=== PATIENT | female | born 1950 | race Caucasian/White ===

== ENCOUNTER 2016-05-26 10:37 | Emergency (ER) | payer MEDICARE, OTHER ==
[~2016-05-26] VITALS: Ht 162.6 cm; Wt 96.9 kg
[~2016-05-26 10:37] MED LIST: DIPH1TAB25 PO; IBUP-1542 PO; IBUP400T22 PO; NITR-58 PO; PHEN-537 PO; PRED20TA PO
[2016-05-26 10:44] VITALS: Ht 162.6 cm; Wt 96.9 kg
[2016-05-26] MEDS ORDERED: METGEL45 TOP (12:07)
[2016-05-26] MEDS ORDERED: HYDR-3011 PO (12:08)
--- NOTE | 2016-05-26 13:51 | ERD ---
ER Documentation Chief Complaint Date/Time DATE: 05/26/16 TIME: 13:46 Chief Complaint feels swelling on forehead, does appear red HPI This patient is a 65-year-old female with past medical history of hypertension presenting to the emergency department for moderate pruritus on her forehead and bilateral cheeks which has been ongoing since this morning. The patient denies any new medications. The patient denies shortness of breath, chest pain , dizziness. She states she takes losartan, hydrochlorothiazide, and aspirin which she has been taking for many years for hypertension. The patient denies any new lotions, detergents, body washes, or other changes to her routine at home. There are no other symptoms to report at this time. ROS All systems reviewed and are negative except as per history of present illness. Medications Home Meds Active Scripts Hydroxyzine Hcl* (Hydroxyzine Hcl*) 25 Mg Tablet, 25 MG PO Q8H Y for ITCHING, # 30 TAB Prov:THAIS TALBOT PA-C 05/26/16 Metronidazole* (Metrogel*) 0.75% -45 Gram Gel, 1 APPLIC TOP BID, #1 TUB Prov:THAIS TALBOT PA-C 05/26/16 Ibuprofen* (Motrin*) 400 Mg Tab, 400 MG PO Q6, #30 TAB 0 Refills Prov:BETI PARMAR PA-C 08/05/15 Phenazopyridine Hcl* (Pyridium*) 100 Mg Tab, 100 MG PO TID Y for PAIN, #9 TAB 0 Refills Prov:BETI PARMAR PA-C 08/05/15 Nitrofurantoin Monohyd Macrocr* (Macrobid*) 100 Mg Capsr, 100 MG PO BID, #14 CAP 0 Refills Prov:BETI PARMAR PA-C 08/05/15 Ibuprofen* (Motrin*) 600 Mg Tab, 600 MG PO Q6, #20 TAB Prov:CLARA HERNANDEZ PA-C 10/15/14 Reported Medications Diphenoxylate Hcl-Atropine* (Lomotil*) 1 Tab Tab, 1 TAB PO BID Y for DIARRHEA, TAB 07/25/14 Prednisone* (Prednisone*) 20 Mg Tab, 20 MG PO DAILY, TAB 07/25/14 Allergies Allergies: Coded Allergies: ciprofloxacin (Verified Allergy, Mild, ITCHING;TONGUE FEELS SWOLLEN, ) AND RAFI SHI MADE AWARE PMhx/Soc Anesthesia Reaction: No Hx Neurological Disorder: No Hx Respiratory Disorders: No Hx Cardiac Disorders: Yes (htn) Hx Psychiatric Problems: Yes (depression) Hx Miscellaneous Medical Probl: No (collitis, hemmhroids) Hx Alcohol Use: No Hx Substance Use: No Hx Tobacco Use: No Smoking Status: Never smoker FmHx Noncontributory for chief complaint Physical Exam Vitals Vital Signs Date Time Temp Pulse Resp B/P Pulse Ox O2 Delivery O2 Flow Rate FiO2 05/26/16 10:44 96.9 79 18 167/74 99 Physical Exam Const: The patient is resting comfortably in no acute distress. Head: Atraumatic Eyes: Normal Conjunctiva ENT: Normal External Ears, Nose and Mouth. Neck: Full range of motion. No meningismus. Resp: Clear to auscultation bilaterally Cardio: Regular rate and rhythm, no murmurs Abd: Soft, non tender, non distended. Skin: There is an erythematous, non-blanchable, papular rash to bilateral cheeks with telangiectasias present. There is no warmth, fasciculations, or pustules. Back: No midline or flank tenderness Ext: No cyanosis, or edema Neur: Awake and alert Psych: Normal Mood and Affect Procedures/MDM 65-year-old female presents secondary to complaints of pruritus and redness on her forehead and bilateral cheeks. On physical examination the patient's blood pressure slightly elevated. Patient's blood pressure was elevated (>120/80) but appears stable without evidence of hypertension emergency or urgency. The patient was counseled about the risks of hypertension and urged to pursue outpatient monitoring and therapy within a week with their primary care physician. Examination of the face reveals an erythematous nonblanching rash with telangiectasias. I suspect rosacea due to the fact that the patient has had the rash for many years. I doubt erysipelas, cellulitis, septicemia, or other emergent conditions. The patient is not being treated with medications currently and I believe it is reasonable to treat her with MetroGel and hydroxyzine as an outpatient. The patient is hemodynamically stable for discharge at this time. All questions and concerns were addressed. The patient agrees with the discharge plan and diagnosis. The patient was advised to return to the department immediately with any new or worsening symptoms and she demonstrates good understanding of this information. Departure Diagnosis: Primary Impression: Erythema Condition: Fair Patient Instructions: What Is Rosacea?, Erythema Referrals: [facility] Usted se arriola hecho un examen mdico de control que le indica que no est en osvaldo condicin que requiera tratamiento urgente en el Departamento de Emergencia. Un estudio ms profundo y el tratamiento de norman condicin pueden esperar sin ningn riesgo hasta que usted sea atendida/o en el consultorio de norman mdico o osvaldo cl lukasz. Es responsabilidad suya arreglar osvaldo nkechi para el seguimiento del omari. MANEJO DE CONDICIONES NO URGENTES EN EL FUTURO 1) Si usted tiene un mdico de atencin primaria: Usted debera llamar a norman mdico de atencin primaria antes de venir al departamento de emergencia. Despus de las horas de consultorio, norman doctor o norman asociado/a est disponible por telfono. El mdico o enfermero de brendan en el servicio telefnico puede asesorarle por [facility] medio para atender el problema, o omari contrario se puede programar osvaldo nkechi. 2) Si usted no tiene un mdico de atencin primaria: Llame al mdico o clnica de referencia que aparece abajo marni las horas de consultorio para hacer osvaldo nkechi para que le vean. CLINICAS: [facility] [id number] [facility] [phone] [facility] [phone] [address] [facility]. [facility] [phone] [facility] [phone] [facility]. [phone] [place] Additional Instructions: No mas mejor en 2-3 holt, regresar. Mas peor, regrese al emergencia rapidamente. Ir a doctor primario en 2-3 holt. Usar instrucciones cuando clarence medicamento. THAIS TALBOT PA-C May 26, 2016 13:51
== END 2016-05-26 12:35 | disposition home or self-care (01) ==
LOC: FTE 10:37
DX: L53.9 Erythematous condition, unspecified (principal); I10 Essential (primary) hypertension
CPT/HCPCS: 99284

== ENCOUNTER 2016-08-25 07:49 | Emergency (ER) | payer MEDICARE, OTHER ==
[~2016-08-25] VITALS: Ht 157.5 cm; Wt 89.0 kg
[~2016-08-25 07:49] MED LIST changes: +HYDR-3011 PO; +METGEL45 TOP
[2016-08-25 07:52] VITALS: Ht 157.5 cm; Wt 89.0 kg
[2016-08-25] MEDS ORDERED: HYDROmorphONE 1 MG/ML SYG IV STA (08:45)
[2016-08-25] MEDS ORDERED: ONDANSETRON 4 MG INJ IV STA (08:45)
[2016-08-25] MEDS ORDERED: SOD CHLORIDE 0.9% 1,000 ML IV STA (08:45)
[2016-08-25 09:09] LABS: ADD SCAN DIFF NO
[2016-08-25 09:12] LABS: BASOPHILS % 0.6 % (0.0-2.0); EOSINOPHILS # 0.2 10^3/ul (0.0-0.5); EOSINOPHILS % 2.3 % (0.0-7.0); HEMATOCRIT 39.4 % (37.0-47.0); HEMOGLOBIN 12.8 g/dl (12.0-16.0); LYMPHOCYTES # 1.9 10^3/ul (0.8-2.9); LYMPHOCYTES % 29.2 % (15.0-51.0); MEAN CORPUSCULAR HEMOGLOBIN 28.8 pg (29.0-33.0); MEAN CORPUSCULAR HGB CONC 32.5 g/dl (32.0-37.0); MEAN CORPUSCULAR VOLUME 88.5 fl (82.0-101.0); MEAN PLATELET VOLUME 10.1 fl (7.4-10.4); MONOCYTE # 0.5 10^3/ul (0.3-0.9); MONOCYTES % 8.1 % (0.0-11.0); NEUTROPHIL # 3.9 10^3/ul (1.6-7.5); NEUTROPHILS % 59.5 % (39.0-77.0); PLATELET COUNT 285 10^3/UL (140-415); RED BLOOD COUNT 4.45 10^6/ul (4.20-5.40); RED CELL DISTRIBUTION WIDTH 13.2 % (11.5-14.5); WHITE BLOOD COUNT 6.5 10^3/ul (4.8-10.8)
[2016-08-25 09:30] LABS: ALBUMIN/GLOBULIN RATIO 1.25; BILIRUBIN,INDIRECT 0.3 mg/dl (0-1.1); BILIRUBIN,TOTAL 0.3 mg/dl (0.2-1.3); CALCIUM 8.6 mg/dl (8.4-10.2); CREATININE 0.72 mg/dl (0.44-1.00); POTASSIUM 3.9 mmol/L (3.5-5.1); TOTAL PROTEIN 7.2 g/dl (6.1-8.1)
--- NOTE | 2016-08-25 09:40 | ERA ---
ER Documentation Chief Complaint Date/Time DATE: 08/25/16 TIME: 09:38 Chief Complaint blood in stool x 1 week with abd pain HPI This is a 65-year-old female says she is a history of ulcerative colitis and has off-and-on left abdominal pain and rectal bleeding from time to time. She states that she has had 8 days of left lower quadrant pain with bright red bloody stools. She says she has bloody diarrhea. There is no nausea or vomiting. The patient says she felt warm this morning but there is no fever here. She describes pain in the left lower quadrant is nonradiating and crampy. ROS All systems reviewed and are negative except as per history of present illness. Medications Home Meds Active Scripts Prednisone* (Prednisone*) 20 Mg Tab, 60 MG PO DAILY for 5 Days, TAB Prov:MEERA DELGADILLO DO 08/25/16 Mesalamine* (Asacol HD) 800 Mg Tablet.dr, 1800 MG PO TID, #60 TAB Prov:MEERA DELGADILLO DO 08/25/16 Sulfamethoxazole/Trimethoprim* (Bactrim Ds* Tablet) 1 Each Tablet, 1 TAB PO DAILY, #20 TAB Prov:MEERA DELGADILLO DO 08/25/16 Metronidazole* (Flagyl*) 500 Mg Tablet, 500 MG PO TID for 10 Days, TAB Prov:MEERA DELGADILLO DO 08/25/16 Discontinued Reported Medications Diphenoxylate Hcl-Atropine* (Lomotil*) 1 Tab Tab, 1 TAB PO BID Y for DIARRHEA, TAB 07/25/14 Prednisone* (Prednisone*) 20 Mg Tab, 20 MG PO DAILY, TAB 07/25/14 Discontinued Scripts Hydroxyzine Hcl* (Hydroxyzine Hcl*) 25 Mg Tablet, 25 MG PO Q8H Y for ITCHING, # 30 TAB Prov:THAIS TALBOT PA-C 05/26/16 Metronidazole* (Metrogel*) 0.75% -45 Gram Gel, 1 APPLIC TOP BID, #1 TUB Prov:THAIS TALBOT PA-C 05/26/16 Ibuprofen* (Motrin*) 400 Mg Tab, 400 MG PO Q6, #30 TAB 0 Refills Prov:BETI PARMAR PA-C 08/05/15 Phenazopyridine Hcl* (Pyridium*) 100 Mg Tab, 100 MG PO TID Y for PAIN, #9 TAB 0 Refills Prov:BETI PARMAR PA-C 08/05/15 Nitrofurantoin Monohyd Macrocr* (Macrobid*) 100 Mg Capsr, 100 MG PO BID, #14 CAP 0 Refills Prov:BETI PARMAR PA-C 08/05/15 Ibuprofen* (Motrin*) 600 Mg Tab, 600 MG PO Q6, #20 TAB Prov:CLARA HERNANDEZ PA-C 10/15/14 Allergies Allergies: Coded Allergies: ciprofloxacin (Verified Allergy, Mild, ITCHING;TONGUE FEELS SWOLLEN, ) AND [facility] MADE AWARE PMhx/Soc Anesthesia Reaction: No Hx Neurological Disorder: No Hx Respiratory Disorders: No Hx Cardiac Disorders: Yes (htn) Hx Psychiatric Problems: Yes (depression) Hx Miscellaneous Medical Probl: No (collitis, hemmhroids) Hx Alcohol Use: No Hx Substance Use: No Hx Tobacco Use: No Smoking Status: Never smoker FmHx Family History: No coronary disease Physical Exam Vitals Vital Signs Date Time Temp Pulse Resp B/P Pulse Ox O2 Delivery O2 Flow Rate FiO2 08/25/16 11:00 75 18 143/75 100 Room Air 08/25/16 07:52 98.1 87 16 177/82 98 Physical Exam Const: Well-developed, well-nourished Head: Atraumatic, normocephalic Eyes: Normal Conjunctiva, PERRLA, EOMI, normal sclera, no nystagmus ENT: Normal External Ears, Nose and Mouth, moist mucus membranes. Neck: Full range of motion. No meningismus, no lymphadenopathy. Resp: Clear to auscultation bilaterally, no wheezing, rhonchi, rales Cardio: Regular rate and rhythm, no murmurs, S1 S2 present Abd: Soft, mild tenderness in the left lower quadrant, non distended. Normal bowel sounds, no guarding or rebound, no pulsitile abdominal masses or bruits Skin: No petechiae or rashes, no ecchymosis , no maculopapular rash Back: No midline or flank tenderness Ext: No cyanosis, or edema, FROM x 4, normal inspection, neurovascularly intact x 4 Neur: Awake and alert, STR 5/5 x 4, sensation intact x 4, no focal findings, cerebellum intact Psych: Normal Mood and Affect Result Diagram: 08/25/16 0810 08/25/16 0810 Results 24 hrs Laboratory Tests Test 08/25/16 08:10 White Blood Count 6.510^3/ul Red Blood Count 4.4510^6/ul Hemoglobin 12.8g/dl Hematocrit 39.4% Mean Corpuscular Volume 88.5fl Mean Corpuscular Hemoglobin 28.8pg Mean Corpuscular Hemoglobin Concent 32.5g/dl Red Cell Distribution Width 13.2% Platelet Count 18390^3/UL Mean Platelet Volume 10.1fl Neutrophils % 59.5% Lymphocytes % 29.2% Monocytes % 8.1% Eosinophils % 2.3% Basophils % 0.6% Nucleated Red Blood Cells % 0.0/100WBC Neutrophils # 3.910^3/ul Lymphocytes # 1.910^3/ul Monocytes # 0.510^3/ul Eosinophils # 0.210^3/ul Basophils # 0.010^3/ul Nucleated Red Blood Cells # 0.010^3/ul Sodium Level 135mmol/L Potassium Level 3.9mmol/L Chloride Level 106mmol/L Carbon Dioxide Level 26mmol/L Anion Gap 7 Blood Urea Nitrogen 14mg/dl Creatinine 0.72mg/dl Glucose Level 102mg/dl Calcium Level 8.6mg/dl Total Bilirubin 0.3mg/dl Direct Bilirubin 0.00mg/dl Indirect Bilirubin 0.3mg/dl Aspartate Amino Transf (AST/SGOT) 15IU/L Alanine Aminotransferase (ALT/SGPT) 23IU/L Alkaline Phosphatase 74IU/L Total Protein 7.2g/dl Albumin 4.0g/dl Globulin 3.20g/dl Albumin/Globulin Ratio 1.25 Lipase 75U/L Current Medications Medications (Trade) Dose Ordered Sig/Spencer Route PRN Reason Start Time Stop Time Status Last Admin Dose Admin Sodium Chloride (NS) 1,000 ml @ 1,000 mls/hr Q1H STAT IV 08/25/16 08:45 08/25/16 09:44 DC 08/25/16 08:53 Hydromorphone HCl (Dilaudid) 1 mg ONCE STAT IV 08/25/16 08:45 08/25/16 08:48 DC 08/25/16 08:52 Ondansetron HCl (Zofran Inj) 4 mg ONCE STAT IV 08/25/16 08:45 08/25/16 08:48 DC 08/25/16 08:53 IV Flush 10 ml 10 ml STK-MED ONCE .ROUTE 08/25/16 09:52 08/25/16 09:53 DC 08/25/16 10:13 Sodium Chloride (NS) 100 ml @ ud STK-MED ONCE .ROUTE 08/25/16 09:52 08/25/16 09:53 DC 08/25/16 10:13 Iohexol (Omnipaque 300mg/ ml) 150 ml STK-MED ONCE .ROUTE 08/25/16 09:52 08/25/16 09:53 DC 08/25/16 10:13 Methylprednisolone Sodium Succinate (Solu-Medrol) 125 mg ONCE ONCE IV 08/25/16 11:00 08/25/16 11:01 DC 08/25/16 10:54 Procedures/MDM PROCEDURE: CT Abdomen and Pelvis with contrast. CLINICAL INDICATION: Left lower quadrant pain and lower GI bleeding. TECHNIQUE: CT scan of the abdomen and pelvis with contrast was performed on a multi-detector high-resolution CT scanner. The patient was scanned following the uncomplicated intravenous administration of 100 cc of Omnipaque 300. Coronal and sagittal reformatted images were obtained from the axial source images. Images were reviewed on a high-resolution PACS workstation. The total exam CTDI equals 23.38 mGy and the total exam DLP equals 1430.23 mGy-cm. One or more of the following dose reduction techniques were used: Automated exposure control. Adjustment of the mA and/or kV according to patient size. Use of iterative reconstruction technique. COMPARISON: CT abdomen and pelvis 10/27/2013 FINDINGS: CT abdomen: The lung bases are clear. The heart size is normal, without pericardial thickening or effusion. The liver is normal in size and density without focal mass or intrahepatic biliary dilatation. The spleen is normal in size and homogeneous in density. The stomach is partially collapsed, but is grossly unremarkable. The pancreas as visualized is normal. The gallbladder is unremarkable. There is no evidence for biliary dilatation. The adrenal glands are symmetric and normal. The kidneys are symmetrically unremarkable as well. No renal calculus or obstructive uropathy or mass lesion is seen. The aorta is of normal caliber. There is mild aortic atherosclerosis. There is no retroperitoneal lymphadenopathy. The mckinley hepatis region is clear. CT pelvis: The small bowel loops situated within the pelvis are unremarkable. The pelvic organs are normal. There is approximately 2 cm cystic lesion in the left adnexa , unchanged. There is mild wall thickening of the proximal sigmoid colon with increased vascularity in the surrounding sigmoid mesocolon and small lymph nodes. There is also suggestion of mild mucosal hyperenhancement in the rectosigmoid junction. No mass, lymphadenopathy, or free fluid is seen. The bladder is normal. The surrounding osseous structures are unremarkable. No osteolytic or osteoblastic lesion is detected. IMPRESSION: 1. Mild wall thickening of the proximal sigmoid colon with adjacent increased vascularity and fatty stranding in keeping with nonspecific infectious/ inflammatory colitis. Probable involvement of the rectosigmoid junction. No diverticulosis of the colon. 2. Mild aortic atherosclerosis. 3. Unchanged 2 cm cystic lesion in the left adnexa. RPTAT: BB .Anisha Pulido MD, MD Date Time Electronically viewed and signed by .Anisha Pulido MD, MD on 08/25/2016 10:23 .O/ CC: MEERA DELGADILLO DO Patient's blood work is unremarkable and she has a stable hematocrit and hemoglobin. She has a flareup of her ulcerative colitis. I will discharge her home with Flagyl, Bactrim, Pentasa and steroids. Gave her strict warning signs to return if needed Departure Diagnosis: Primary Impression: Ulcerative colitis Qualified Code: K51.811 - Other ulcerative colitis with rectal bleeding Condition: Stable MEERA DELGADILLO DO August 25, 2016 09:40
[2016-08-25] MEDS ORDERED: SOD CHLORIDE 0.9% 100 ML ONE (09:52)
[2016-08-25] MEDS ORDERED: IOHEXOL 300MG/ML 150 ML BTL ONE (09:52)
--- NOTE | 2016-08-25 10:23 | RADRPT ---
PROCEDURE: CT Abdomen and Pelvis with contrast. CLINICAL INDICATION: Left lower quadrant pain and lower GI bleeding. TECHNIQUE: CT scan of the abdomen and pelvis with contrast was performed on a multi-detector high- resolution CT scanner. The patient was scanned following the uncomplicated intravenous administrati on of 100 cc of Omnipaque 300. Coronal and sagittal reformatted images were obtained from the axial source images. Images were reviewed on a high-resolution PACS workstation. The total exam CTDI equa ls 23.38 mGy and the total exam DLP equals 1430.23 mGy-cm. One or more of the following dose reduction techniques were used: Automated exposure control. Adjustment of the mA and/or kV according to patient size. Use of iterative reconstruction technique. COMPARISON: CT abdomen and pelvis 10/27/2013 FINDINGS: CT abdomen: The lung bases are clear. The heart size is normal, without pericardial thickening or effusion. Th e liver is normal in size and density without focal mass or intrahepatic biliary dilatation. The sp michael is normal in size and homogeneous in density. The stomach is partially collapsed, but is gross ly unremarkable. The pancreas as visualized is normal. The gallbladder is unremarkable. There is no evidence for biliary dilatation. The adrenal glands are symmetric and normal. The kidneys are s ymmetrically unremarkable as well. No renal calculus or obstructive uropathy or mass lesion is seen . The aorta is of normal caliber. There is mild aortic atherosclerosis. There is no retroperitoneal ly mphadenopathy. The mckinley hepatis region is clear. CT pelvis: The small bowel loops situated within the pelvis are unremarkable. The pelvic organs are normal. Th ere is approximately 2 cm cystic lesion in the left adnexa, unchanged. There is mild wall thickenin g of the proximal sigmoid colon with increased vascularity in the surrounding sigmoid mesocolon and small lymph nodes. There is also suggestion of mild mucosal hyperenhancement in the rectosigmoid ju nction. No mass, lymphadenopathy, or free fluid is seen. The bladder is normal. The surrounding oss eous structures are unremarkable. No osteolytic or osteoblastic lesion is detected. IMPRESSION: 1. Mild wall thickening of the proximal sigmoid colon with adjacent increased vascularity and fatty stranding in keeping with nonspecific infectious/inflammatory colitis. Probable involvement of the rectosigmoid junction. No diverticulosis of the colon. 2. Mild aortic atherosclerosis. 3. Unchanged 2 cm cystic lesion in the left adnexa. RPTAT: BB .Anisha Pulido MD, MD Date Time Electronically viewed and signed by .Anisha Pulido MD, MD on 08/25/2016 10:23 .O/
[2016-08-25] MEDS ORDERED: METHYLPREDNISOLONE 125 MG INJ IV ONE (11:00)
[2016-08-25] MEDS ORDERED: MESA800T2 PO (11:47)
[2016-08-25] MEDS ORDERED: METR500T PO (11:47)
[2016-08-25] MEDS ORDERED: PRED20TA PO (11:47)
[2016-08-25] MEDS ORDERED: SULF1TAB31 PO (11:47)
[2016-08-25 12:24] VITALS: BP 128/75; PULSE 74; RESP 19; TEMP 98.2
== END 2016-08-25 12:25 | disposition home or self-care (01) ==
LOC: E/R 07:49
DX: K51.811 Other ulcerative colitis with rectal bleeding (principal); I10 Essential (primary) hypertension
CPT/HCPCS: 36415; 74177; 80053; 83690; 85025; 96374; 96375; 99285; J1170; J2405; J2930; J7030; Q9967

== ENCOUNTER 2016-10-03 09:04 | Emergency (ER) | payer OTHER ==
[~2016-10-03] VITALS: Ht 165.1 cm; Wt 91.0 kg
[~2016-10-03 09:04] MED LIST changes: -DIPH1TAB25 PO; -HYDR-3011 PO; -IBUP-1542 PO; -IBUP400T22 PO; +MESA800T2 PO; -METGEL45 TOP; +METR500T PO; -NITR-58 PO; -PHEN-537 PO; +SULF1TAB31 PO
[2016-10-03 09:07] VITALS: Ht 165.1 cm; Wt 91.0 kg
--- NOTE | 2016-10-03 10:36 | ERD ---
ER Documentation Chief Complaint Date/Time DATE: 10/03/16 TIME: 10:33 Chief Complaint ap with bloody stools, hx of ulcerative colitis HPI Patient is a 65-year-old female with history of ulcerative colitis who presents to the ER with chronic rectal bleeding and diffuse abdominal pain for several months. The patient was seen in the ER on August 25, 2016 and had a normal hemoglobin and a CT scan showing nonspecific colitis. The patient was discharged with mesalamine, antibiotics, and a short course of steroids. She states that after running out of her medication recently, over the last 2 days she has had increased pain and rectal bleeding. She denies dark stool. She reports subjective fever 4 days ago for 1 day only. She denies vomiting. She denies dysuria. She has a follow-up appointment with her trade mark attorney scheduled for October 19. ROS All systems reviewed and are negative except as per history of present illness. Medications Home Meds Active Scripts Prednisone* (Prednisone*) 20 Mg Tab, 60 MG PO DAILY for 4 Days, TAB Prov:VALERIA MIRANDA MD 10/03/16 Mesalamine* (Pentasa*) 500 Mg Capsule.sa, 500 MG PO QID, #30 CAP Prov:VALERIA MIRANDA MD 10/03/16 Discontinued Scripts Prednisone* (Prednisone*) 20 Mg Tab, 60 MG PO DAILY for 5 Days, TAB Prov:MIGUEL DELGADILLOSTFLORS Lissette DO 08/25/16 Mesalamine* (Asacol HD) 800 Mg Tablet.dr, 1800 MG PO TID, #60 TAB Prov:MIGUEL DELGADILLOSTOLOS A. DO 08/25/16 Sulfamethoxazole/Trimethoprim* (Bactrim Ds* Tablet) 1 Each Tablet, 1 TAB PO DAILY, #20 TAB Prov:MIGUEL DELGADILLOSTOLOS A. DO 08/25/16 Metronidazole* (Flagyl*) 500 Mg Tablet, 500 MG PO TID for 10 Days, TAB Prov:MIGUEL DELGADILLOSTOLOS A. DO 08/25/16 Allergies Allergies: Coded Allergies: ciprofloxacin (Verified Allergy, Mild, ITCHING;TONGUE FEELS SWOLLEN, ) AND RAFI SHI MADE AWARE PMhx/Soc Past medical history: Ulcerative colitis Past surgical history: Denies Social history: Denies tobacco or alcohol Anesthesia Reaction: No Hx Neurological Disorder: No Hx Respiratory Disorders: No Hx Cardiac Disorders: Yes (htn) Hx Psychiatric Problems: Yes (depression) Hx Miscellaneous Medical Probl: No (colitis, hemmorhoids) Hx Alcohol Use: No Hx Substance Use: No Hx Tobacco Use: No FmHx Family History: No coronary disease, No diabetes Physical Exam Vitals Vital Signs Date Time Temp Pulse Resp B/P Pulse Ox O2 Delivery O2 Flow Rate FiO2 10/03/16 12:22 98.2 67 16 152/87 99 Room Air 10/03/16 11:17 66 16 158/90 99 Room Air 10/03/16 09:07 98.1 88 20 188/86 99 Physical Exam Const: Alert, no acute distress Head: Atraumatic Eyes: Normal Conjunctiva, no pallor, no icterus ENT: Normal External Ears, Nose and Mouth. His membranes moist Neck: Full range of motion..~ No meningismus. Resp: Clear to auscultation bilaterally, no wheezes, no rales Cardio: Regular rate and rhythm, no murmurs Abd: Soft, non tender, non distended. No guarding or rebound. Skin: No petechiae or rashes Back: No midline or flank tenderness Ext: No cyanosis, or edema Neur: Awake and alert, cranial nerves II through XII intact bilaterally, patient moves and feels 4 extremities appropriately Psych: Appears anxious. Result Diagram: 10/03/16 1041 10/03/16 1041 Results 24 hrs Laboratory Tests Test 10/03/16 10:41 10/03/16 10:51 White Blood Count 7.410^3/ul Red Blood Count 4.5810^6/ul Hemoglobin 13.2g/dl Hematocrit 40.5% Mean Corpuscular Volume 88.4fl Mean Corpuscular Hemoglobin 28.8pg Mean Corpuscular Hemoglobin Concent 32.6g/dl Red Cell Distribution Width 13.7% Platelet Count 87249^3/UL Mean Platelet Volume 9.9fl Neutrophils % 61.2% Lymphocytes % 27.2% Monocytes % 8.2% Eosinophils % 2.6% Basophils % 0.5% Nucleated Red Blood Cells % 0.0/100WBC Neutrophils # 4.610^3/ul Lymphocytes # 2.010^3/ul Monocytes # 0.610^3/ul Eosinophils # 0.210^3/ul Basophils # 0.010^3/ul Nucleated Red Blood Cells # 0.010^3/ul Sodium Level 143mmol/L Potassium Level 4.0mmol/L Chloride Level 104mmol/L Carbon Dioxide Level 27mmol/L Anion Gap 16 Blood Urea Nitrogen 11mg/dl Creatinine 0.77mg/dl Glucose Level 100mg/dl Calcium Level 8.9mg/dl Total Bilirubin 0.3mg/dl Direct Bilirubin 0.00mg/dl Indirect Bilirubin 0.3mg/dl Aspartate Amino Transf (AST/SGOT) 18IU/L Alanine Aminotransferase (ALT/SGPT) 18IU/L Alkaline Phosphatase 80IU/L Total Protein 7.5g/dl Albumin 4.1g/dl Globulin 3.40g/dl Albumin/Globulin Ratio 1.20 Lipase 54U/L Urine Color YELLOW Urine Clarity CLEAR Urine pH 6.0 Urine Specific [place] 1.015 Urine Ketones NEGATIVEmg/dL Urine Nitrite NEGATIVEmg/dL Urine Bilirubin NEGATIVEmg/dL Urine Urobilinogen NEGATIVEmg/dL Urine Leukocyte Esterase 1+Naseem/ul Urine Microscopic RBC 1/HPF Urine Microscopic WBC 2/HPF Urine Bacteria FEW/HPF Urine Hemoglobin 2+mg/dL Urine Glucose NEGATIVEmg/dL Urine Total Protein NEGATIVEmg/dl Current Medications Medications (Trade) Dose Ordered Sig/[place]cer Route PRN Reason Start Time Stop Time Status Last Admin Dose Admin Dicyclomine HCl (Bentyl) 10 mg ONCE ONCE PO 10/03/16 11:00 10/03/16 11:01 DC 10/03/16 10:38 Procedures/MDM MDM: Patient is a 65-year-old female with history of ulcerative colitis who presents with ongoing symptoms of rectal bleeding with cramping abdominal pain. On history, the patient is not specific about timing of symptoms, but on further questioning, it appears that her symptoms have been stable for more than a month. She does state that her cramping pain and quantity of stool has increased slightly since she stopped taking mesalamine. She is afebrile, has a normal white blood cell count, has no tachycardia, and does not have evidence of significant anemia. Serial abdominal exams are benign. The patient initially appeared upset, but on reassessment she stated that she felt better and is well-appearing. She made a request for pain medication, but narcotics for regular use of anticholinergics are potentially harmful, so I would advise her to continue Tylenol. I will give her a refill for mesalamine 500 mg 4 times a day. I will also give her a short course of steroids. The patient was inconsistent in her report of a number of stools. She initially reported 4 stools per day, but on repeat questioning stated that she has had 20 stools per day. The patient was in the ER for several hours and did not have a single bowel movement. I advised the patient to call her trade mark attorney tomorrow and request follow-up in the next 2-3 days. I advised her to return to the ER for fever, severe pain, worsening bleeding, or other concerns. I do not believe that the patient has a severe exacerbation of ulcerative colitis, and I do not see an indication for antibiotics at this time. Departure Diagnosis: Primary Impression: Ulcerative colitis Ulcerative colitis location: unspecified ulcerative colitis location Digestive disease complication type: without complication Qualified Code: K51.90 - Ulcerative colitis without complications, unspecified location Condition: VALERIA Dawn MD Oct 03, 2016 10:36
[2016-10-03 10:58] LABS: ADD SCAN DIFF NO
[2016-10-03] MEDS ORDERED: DICYCLOMINE 10 MG CAP PO ONE (11:00)
[2016-10-03 11:02] LABS: BASOPHILS % 0.5 % (0.0-2.0); EOSINOPHILS # 0.2 10^3/ul (0.0-0.5); EOSINOPHILS % 2.6 % (0.0-7.0); HEMATOCRIT 40.5 % (37.0-47.0); HEMOGLOBIN 13.2 g/dl (12.0-16.0); LYMPHOCYTES % 27.2 % (15.0-51.0); MEAN CORPUSCULAR HEMOGLOBIN 28.8 pg (29.0-33.0); MEAN CORPUSCULAR HGB CONC 32.6 g/dl (32.0-37.0); MEAN CORPUSCULAR VOLUME 88.4 fl (82.0-101.0); MEAN PLATELET VOLUME 9.9 fl (7.4-10.4); MONOCYTE # 0.6 10^3/ul (0.3-0.9); MONOCYTES % 8.2 % (0.0-11.0); NEUTROPHIL # 4.6 10^3/ul (1.6-7.5); NEUTROPHILS % 61.2 % (39.0-77.0); PLATELET COUNT 287 10^3/UL (140-415); RED BLOOD COUNT 4.58 10^6/ul (4.20-5.40); RED CELL DISTRIBUTION WIDTH 13.7 % (11.5-14.5); WHITE BLOOD COUNT 7.4 10^3/ul (4.8-10.8)
[2016-10-03 11:05] LABS: ADD UMIC YES; UR ASCORBIC ACID NEGATIVE (NEGATIVE); UR BACTERIA FEW /HPF (NONE SEEN); UR BILIRUBIN (Dip) NEGATIVE (NEGATIVE); UR BLOOD (Dip) 2+ mg/dL (NEGATIVE); UR CLARITY CLEAR (CLEAR); UR COLOR YELLOW (YELLOW); UR GLUCOSE (Dip) NEGATIVE (NEGATIVE); UR KETONES (Dip) NEGATIVE (NEGATIVE); UR LEUKOCYTE ESTERASE (Dip) 1+ Leu/ul (NEGATIVE); UR NITRITE (Dip) NEGATIVE (NEGATIVE); UR RBC 1 /HPF (0-5); UR SPECIFIC GRAVITY (Dip) 1.015 (1.003-1.030); UR TOTAL PROTEIN (Dip) NEGATIVE (NEGATIVE); UR UROBILINOGEN (Dip) NEGATIVE (NEGATIVE)
[2016-10-03 11:29] LABS: ALBUMIN 4.1 g/dl (3.3-4.9); ALBUMIN/GLOBULIN RATIO 1.2; BILIRUBIN,INDIRECT 0.3 mg/dl (0-1.1); BILIRUBIN,TOTAL 0.3 mg/dl (0.2-1.3); CALCIUM 8.9 mg/dl (8.4-10.2); CREATININE 0.77 mg/dl (0.44-1.00); TOTAL PROTEIN 7.5 g/dl (6.1-8.1)
[2016-10-03] MEDS ORDERED: MESA500C PO (12:08)
[2016-10-03] MEDS ORDERED: PRED20TA PO (12:20)
[2016-10-03 12:22] VITALS: BP 152/87; PULSE 67; RESP 16; TEMP 98.2
== END 2016-10-03 12:26 | disposition home or self-care (01) ==
LOC: E/R 09:04
DX: K51.90 Ulcerative colitis, unspecified, without complications (principal); I10 Essential (primary) hypertension
CPT/HCPCS: 36415; 80053; 81001; 83690; 85025; 99284

== ENCOUNTER 2017-04-01 10:03 | Emergency (ER) | END 2017-04-01 15:00 | disposition home or self-care (01) ==

== ENCOUNTER 2017-05-23 13:34 | Inpatient (IN) | END 2017-05-25 18:36 | DRG 65 ==

== ENCOUNTER 2017-05-25 18:46 | Inpatient (IN) | END 2017-06-07 13:00 | disposition home health service (06) | DRG 57 ==